=== PATIENT | female | born 1980 | race Hispanic/Latino ===

== ENCOUNTER 2018-03-30 14:46 | Emergency (ER) | payer SELFPAY ==
[~2018-03-30] VITALS: Ht 162.6 cm; Wt 81.4 kg
[2018-03-30 15:55] LABS: HEMATOCRIT 33.3 % (36.0-46.0); HEMOGLOBIN 10.4 G/DL (11.9-15.5); MCH 23.8 PG (29.0-34.0); MCHC 31.2 G/DL (30.0-36.0); MCV 76.2 FL (83-99); PLATELET COUNT 247 K/uL (156-360); RBC DIS.WIDTH-CV 18.3 % (11.8-14.6); RBC DIS.WIDTH-SD 49.9 % (39-53); RED BLOOD COUNT 4.37 M/uL (3.80-5.20); WHITE BLOOD COUNT 4.6 K/uL (4.1-10.2)
[2018-03-30 16:04] LABS: CHLORIDE 107 mEq/L (99-109); POTASSIUM 3.8 mEq/L (3.7-5.4); SODIUM 140 mEq/L (136-147)
[2018-03-30 16:06] LABS: GLUCOSE 111 mg/dL (70-99)
[2018-03-30 16:09] LABS: CREATININE 0.7 mg/dL (0.6-1.3); GFR ESTIMATE (CALCULATED) > 59 mL/min/
[2018-03-30 16:10] LABS: UREA NITROGEN (BUN) 11 mg/dL (9-23)
[2018-03-30] MEDS ORDERED: PREDNISONE50 MG PO (17:50)
[2018-03-30 17:59] VITALS: BP 118/69
[2018-03-30] MEDS ORDERED: LEVOFLOXACIN500 MG PO (17:59)
== END 2018-03-30 18:00 | disposition home or self-care (01) ==
LOC: EME 14:46
PROVIDERS: Emergency Medicine
DX: J06.9 Acute upper respiratory infection, unspecified (principal); J45.909 Unspecified asthma, uncomplicated; R53.83 Other fatigue
CPT/HCPCS: 71046; 80048; 85027; 94640; 99281; 99283; J7512